=== PATIENT | male | born 1935 | race Caucasian/White ===

== ENCOUNTER 2018-04-30 12:34 | Inpatient (IN) | payer OTHER ==
[~2018-04-30] VITALS: Ht 172.7 cm; Wt 100.0 kg
--- NOTE | ~2018-04-30 | TEE ---
PATIENT:LILLY BEAN MEDICAL RECORD: [id number] LOCATION:[facility] AGE OF PATIENT: 82 ADMISSION DATE: 04/30/18 SEX: M REFERRING PHYSICIAN: INTERPRETING PHYSICIAN: SALVADOR CARNES MD TRANSESOPHAGEAL ECHOCARDIOGRAM Date: 04/30/18 EDWIN CHARGE Y INDICATIONS: AORTIC DISECTION PREMEDICATIONS: PATIENT'S RESPONSE PROCEDURE DOPPLER MEASUREMENTS: LVIT LA PA RA LVOT RVOT Asc. Ao AV Gradient Peak AV Mean AV Area MV Gradient Peak MV Mean MV Area INTERPRETATION: Doppler: 2-D: COLOR FLOW DOPPLER NORMAL SALINE STUDY: MISCELLANOUS: DIAGNOSIS: PLAN: Division Superintendent:1 Dr. Carnes Lace Machine Operator: Ana ALMAZAN COMMENTS: JUDITH PATIENT DATE OF SERVICE: 04/30/2018 PROCEDURE: Transesophageal echo evaluation of valvular structures during aortic dissection surgery. FINDINGS: 1. Left ventricular chamber size is within normal limits. Left ventricular systolic function is normal. Overall ejection fraction estimated at 55%. 2. Left atrium, right atrium, and right ventricle chamber sizes are within TRANSESOPHAGEAL ECHOCARDIOGRAM REPORT [id number] EMMANUEL BEAN normal limits. 3. Valvular structures have normal structure and motion. Aortic valve is not at all affected by the dissection. 4. Doppler interrogation reveals trace mitral regurgitation, mild tricuspid regurgitation, no other valvular insufficiency or stenosis. 5. No evidence of pericardial effusion or left ventricular thrombus. TRANSINT:[id number] Voice Confirmation ID: [id number] DOCUMENT ID: [id number] SALVADOR CARNES MD CC: [id number] DICTATION DATE: 05/01/[address] OFFICER: 05/02/18 0028 DIS IN 04/30/18 [facility] [address] [place] [address]
[2018-04-30] MEDS ORDERED: COUMADIN5 MG PO (12:40)
[2018-04-30] MEDS ORDERED: ZYLOPRIM300 MG PO (12:40)
[2018-04-30] MEDS ORDERED: ZOCOR80 MG PO (12:40)
[2018-04-30 13:11] VITALS: BP 147/102
[2018-04-30 13:15] LABS: BASOPHILS 0.2 % (0-2); EOSINOPHILS 0.6 % (0-7); HEMATOCRIT 41.2 % (42.0-54.0); HEMOGLOBIN 13.7 g/dL (13.5-17.5); IMMATURE GRANULOCYTES 0.2 % (0-5); LYMPHOCYTES 19.3 % (15-50); MCH 30.7 pg (26.0-34.0); MCHC 33.3 g/dL (31.0-37.0); MCV 92.4 fL (80.0-100.0); MEAN PLATELET VOLUME 10.4 fL (7.4-10.4); MONOCYTES 4.4 % (2-11); NEUTROPHILS 75.3 % (40-80); RBC 4.46 10x6/uL (4.20-6.10); RDW 13.7 % (11.5-14.5); WBC 6.3 10x3/uL (4.8-10.8)
[2018-04-30 13:19] LABS: PLATELET COUNT 219 10x3/uL (130-400)
[2018-04-30 13:23] LABS: APTT 45.5 SECONDS (22.8-39.4); INR 2.71 (0.85-1.17)
[2018-04-30 13:49] LABS: ALBUMIN 3.7 g/dL (3.4-5.0); CALC OSMOLALITY 282 mosm/kg (275-300); CALCIUM 8.8 mg/dL (8.5-10.1); CARBON DIOXIDE 28.6 mmol/L (21.0-32.0); CHLORIDE - SERUM 104 mmol/L (98-107); CKMB 1.4 U/L (0.0-3.6); CREATININE - SERUM 1.1 mg/dL (0.6-1.3); GLUCOSE 123 mg/dL (74-106); POTASSIUM - SERUM 3.8 mmol/L (3.5-5.1); SODIUM 141 mmol/L (136-145); UREA NITROGEN 14 mg/dL (7-18); eGFR NON AFRICAN AMERICAN 68 mL/min (90-120)
[2018-04-30 14:00] VITALS: BP 167/114
[2018-04-30 14:07] LABS: ALKALINE PHOSPHATASE 118 U/L (46-116); ALT (SGPT) 15 U/L (10-68); BILIRUBIN - TOTAL 0.76 mg/dL (0.2-1.3); CREATINE KINASE 86 UL (21-232); MAGNESIUM - SERUM 2.2 mg/dL (1.8-2.4); PROTEIN - SERUM 7.8 g/dL (6.4-8.2); TROPONIN-I < 0.017 ng/mL (0.000-0.060)
[2018-04-30 14:26] VITALS: BP 147/106
[2018-04-30 15:00] VITALS: BP 153/104
--- NOTE | 2018-04-30 15:20 | NUR ---
FROM THE TIME WE WERE INFORMED OF THE PATIENT HAVING A DISSECTING AAA AT 1420, I REMAINED AT THE BEDSIDE UNTIL THE PATIENT WENT TO SURGERY AT 1320. DURING THIS TIME WE INITIATED AN ESMOLOL DRIP, GOT THE PATIENT INTO A HOSPITAL GOWN AND SURGICAL CONSENTS SIGNED. DR GOLD AND DR WONG WERE IN THE ROOM FOR MOST OF THIS TIME. THE PATIENT WAS ASSISTED TO CONTACT HIS DAUGHTER AND WAS ESCORTED OUT OF THE DEPARTMENT VIA STRETCHER BY DR. GOLD, DR. AMIN AND DR. WONG. PT WAS AAO AND WITHOUT SIGNS OF ACUTE DISTRESS.
[2018-04-30 15:48] VITALS: BP 153/101
[2018-04-30 19:56] LABS: INR 3.67 (0.85-1.17); PROTIME 35.6 SECONDS (11.6-15.0)
[2018-04-30 21:31] VITALS: Ht 172.7 cm; Wt 100.0 kg
--- NOTE | 2018-04-30 21:43 | NUR ---
PROUNCED AT 2044.
--- NOTE | 2018-05-01 10:11 | NUR ---
ALL LINES REMOVED IN PACU PER BOW MAKER PRODUCTION. IV LINES OUT INTACT, CENTRAL LINE REMOVED INTACT, CORDIS/SWANS REMOVED INTACT. KIM DC/REMOVED. FAMILY INFORMED BY DR WONG. BOW MAKER [employer] CALLED AORA CALLED DAUGHTER CALLED ALLOW TO VERBALIZE CONCERNS, ASK HOME PREFERENCE. PATIENT BELONGING SENT WITH HOUSE SUP. TO SUP. OFFICE. BODY REMAIN IN PACU WAITING ARIVAL OF HOME.
--- NOTE | 2018-05-01 13:54 | OP ---
PATIENT NAME: LILLY BEAN MEDICAL RECORD: [id number] :33 LOCATION:[facility]- ADMISSION DATE:04/30/18 SURGEON: SAAD WONG MD DATE OF OPERATION: 04/30/2018 SURGEON: Saad Wong MD JAVA CONSULTANT: Nasim Baldwin MD PROCEDURE PERFORMED: Repair of ascending aortic aneurysm with femoral arterial and venous cannulation. 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 ANESTHESIA: General endotracheal anesthesia. OUTCOME: . OPERATIVE FINDINGS: 1. Transesophageal echocardiography confirmed ascending aortic dissection that appeared to extend down to the left main coronary ostium. 2. Moderately aneurysmal femoral artery but good flows on femoral arterial venous cannulation. 3. Ascending aortic dissection with a 29-minute circulatory arrest for distal anastomosis, but the dissection extended proximal to this sinotubular junction with severe calcification of the aorta and a double felt pledgeted repair did not hold after first restarting the heart and was taken down by opening the graft and again attempted but with massive leakage and 3-1/2 hour cardiopulmonary bypass including circulatory arrest, further attempts were felt to be futile. was declared at 8:45 p.m. INDICATIONS: Acute ascending aortic dissection. DESCRIPTION OF PROCEDURE: The patient brought emergently to the operating suite, lines placed by anesthesia. General endotracheal anesthesia was obtained, transesophageal echocardiography was performed. Right femoral artery cannulation was performed arterial and venous. The oscillating sternal saw was used. The patient was placed on cardiopulmonary bypass. Chest was opened. The innominate vein and left ventricle were dissected out. The patient was cooled. Circulatory arrest was performed. The aorta was transected distally. The aorta was 4.2 cm at the distal ascending aorta with a small amount of dissection extending on the medial aspect repaired with BioGlue and a double felt distal suture line but approximately severe calcification along the right side as noted above. Repaired twice using double felt but with resultant bleeding. After a second separation from cardiopulmonary bypass and with massive bleeding, the patient was then again returned to cardiopulmonary bypass. The entire proximal line was taken down. Double felt pledgets again used at the sinotubular junction but posterior bleeding persisted and it was felt the patient's chances to survive at this point were minimal. Pump was turned off OPERATIVE REPORT [id number] IRISMaraLILLY and was declared at 8:45. Family was notified. TRANSINT:[id number] Voice Confirmation ID: [id number] DOCUMENT ID: [id number] SAAD WONG MD at 1354 CC: SAKINA VALENZUELA M.D. and MARIEL CRAWLEY MD [id number] DICTATION DATE: 04/30/182150 HITCHER: 05/01/18 0011 DIS IN 04/30/[address] [facility] [address] [place] [address]
== END 2018-04-30 20:45 | DRG 268 ==
LOC: D.ER 12:34 → D.EDHOLD 15:50 → D.SDCHOLD 16:21 → D.CVICU 19:31 → D.SDCHOLD 20:45
PROVIDERS: Family Medicine; ADMIT Thoracic Surgery (Cardiothoracic Vascular Surgery); ATTEND Thoracic Surgery (Cardiothoracic Vascular Surgery)
PROC: 5A1221Z Performance of Cardiac Output, Continuous (ICD-10-PCS; 2018-04-30)
PROC: B24BZZ4 Ultrasonography of Heart with Aorta, Transesophageal (ICD-10-PCS; 2018-04-30)
PROC: 02QX0ZZ Repair Thoracic Aorta, Ascending/Arch, Open Approach (ICD-10-PCS; principal; 2018-04-30 15:00)
DX: I71.01 Dissection of thoracic aorta (principal); I25.42 Coronary artery dissection; I74.09 Other arterial embolism and thrombosis of abdominal aorta; I25.10 Atherosclerotic heart disease of native coronary artery without angina pectoris; I10 Essential (primary) hypertension; Z79.01 Long term (current) use of anticoagulants; Z95.2 Presence of prosthetic heart valve; I71.1 Thoracic aortic aneurysm, ruptured; I46.9 Cardiac arrest, cause unspecified; I72.3 Aneurysm of iliac artery; I71.4 Abdominal aortic aneurysm, without rupture; I70.0 Atherosclerosis of aorta